=== PATIENT | female | born 1980 | race Caucasian/White ===

== ENCOUNTER 2017-02-09 20:46 | Outpatient (CLI) | payer MEDICAID ==
[~2017-02-09] VITALS: Ht 154.9 cm; Wt 68.3 kg
[~2017-02-09 20:46] MED LIST: OMEPRAZOLE PO
[2017-02-09 21:57] VITALS: Ht 154.9 cm; Wt 68.3 kg
[2017-02-09 22:00] VITALS: BP 105/63
[2017-02-09] MEDS ORDERED: TERBUTALINE 1 MG/ML INJ SC ONE (22:00)
[2017-02-09] MEDS ORDERED: LACTATED RINGER'S 1,000 ML IV ONE (22:00)
[2017-02-09 23:04] LABS: BASOPHILS % 0.1 % (0.0-2.0); EOSINOPHILS # 0.1 10^3/ul (0.0-0.5); EOSINOPHILS % 1.4 % (0.0-7.0); HEMATOCRIT 35.9 % (37.0-47.0); HEMOGLOBIN 12.5 g/dl (12.0-16.0); MEAN CORPUSCULAR HEMOGLOBIN 32.1 pg (29.0-33.0); MEAN CORPUSCULAR HGB CONC 34.8 g/dl (32.0-37.0); MEAN CORPUSCULAR VOLUME 92.3 fl (82.0-101.0); MEAN PLATELET VOLUME 11.8 fl (7.4-10.4); MONOCYTE # 0.5 10^3/ul (0.3-0.9); MONOCYTES % 6.2 % (0.0-11.0); NEUTROPHIL # 5.9 10^3/ul (1.6-7.5); NEUTROPHILS % 68.4 % (39.0-77.0); PLATELET COUNT 190 10^3/UL (140-415); RED BLOOD COUNT 3.89 10^6/ul (4.20-5.40); RED CELL DISTRIBUTION WIDTH 12.8 % (11.5-14.5); WHITE BLOOD COUNT 8.6 10^3/ul (4.8-10.8)
[2017-02-09 23:22] LABS: ALBUMIN 3.3 g/dl (3.3-4.9); ALBUMIN/GLOBULIN RATIO 1.1; BILIRUBIN,INDIRECT 0.5 mg/dl (0-1.1); BILIRUBIN,TOTAL 0.5 mg/dl (0.2-1.3); CALCIUM 8.9 mg/dl (8.4-10.2); CREATININE 0.43 mg/dl (0.44-1.00); POTASSIUM 3.5 mmol/L (3.5-5.1); TOTAL PROTEIN 6.3 g/dl (6.1-8.1)
[2017-02-09] MEDS: LACTATED RINGER'S 1,000 ML IV SCH (23:27)
[2017-02-10] MEDS ORDERED: TERBUTALINE 1 MG/ML INJ SC ONE (01:30)
[2017-02-10] MEDS ORDERED: NIFEdipine 10 MG CAP PO ONE (02:30)
[2017-02-10] MEDS: LACTATED RINGER'S 1,000 ML IV SCH (03:56)
--- NOTE | 2017-02-10 06:50 | PN ---
Triage Information Date/Time February 10, 2017 Weeks of Gestation 31w 2d : 4 Para: 2 Diabetes management: diet controlled (Newly diagnosed.) Hypertention: none Additional information Pt came in c/o contractions. PMHx: newly dx'ed with GDM. PSHx: Cholecystectomy. NKDA. Objective Vital Signs Date Time Temp Pulse Resp B/P Pulse Ox O2 Delivery O2 Flow Rate FiO2 02/09/17 22:00 98.0 105/63 Room Air Intake and Output 02/09/17 02/09/17 02/10/17 15:00 23:00 07:00 Intake Total 1850 ml Output Total 1100 ml Balance 750 ml Heart Rate: 140's Heart Rate Comments Accels to 160 bpm Contractions: 6-10 Minutes Apart Exam Cervix: 30% effaced/closed/-4 Results/Medications Result Diagram: 02/09/17224902/09/172249 Results 24 hrs Laboratory Tests Test 02/09/17 22:33 02/09/17 22:50 Bedside Glucose 87 White Blood Count 8.6 Red Blood Count 3.89 L Hemoglobin 12.5 Hematocrit 35.9 L Mean Corpuscular Volume 92.3 Mean Corpuscular Hemoglobin 32.1 Mean Corpuscular Hemoglobin Concent 34.8 Red Cell Distribution Width 12.8 Platelet Count 190 Mean Platelet Volume 11.8 H Neutrophils % 68.4 Lymphocytes % 23.0 Monocytes % 6.2 Eosinophils % 1.4 Basophils % 0.1 Nucleated Red Blood Cells % 0.0 Neutrophils # 5.9 Lymphocytes # 2.0 Monocytes # 0.5 Eosinophils # 0.1 Basophils # 0.0 Nucleated Red Blood Cells # 0.0 Sodium Level 141 Potassium Level 3.5 Chloride Level 105 Carbon Dioxide Level 21 Anion Gap 19 H Blood Urea Nitrogen 6 L Creatinine 0.43 L Glucose Level 90 Calcium Level 8.9 Total Bilirubin 0.5 Direct Bilirubin 0.00 Indirect Bilirubin 0.5 Aspartate Amino Transf (AST/SGOT) 26 Alanine Aminotransferase (ALT/SGPT) 37 Alkaline Phosphatase 114 Total Protein 6.3 Albumin 3.3 Globulin 3.00 Albumin/Globulin Ratio 1.10 Medications Current Medications Lactated Ringer's (Lr) 1,000 ml @ 150 mls/hr Q6H40M IV Last administered on t 03:56; Admin Dose 150 MLS/HR; Start 02/09/17 at 23:15 Assessment/Plan A: IUP at 31w 2d. False labor. Gestational DM. P: Pt was given IV hydration and 2 doses of terbutaline and one dose of Procardia 20mg before the UC's stopped. She was then observed for a few hours and her uterus stayed calm so she was then able to be d/c'ed home. Total bile acids were drawn as the pt c/o some body itching. That level will not be available for a week, approximately. Pt is scheduled to attend the diabetes clinic for teaching on Monday 02/12. ULZMARIA WADSWORTH MD Feb 10, 2017 06:50
--- NOTE | 2017-02-10 07:23 | TRIAGE ---
OB Triage Datetime Report Generated by CPN: 02/10/2017 07:22 Datetime: 02/10/2017 06:46 Assessment Type: Ongoing Assessment Datetime: 02/10/2017 05:24 Stage of : OB Triage Temperature Route: Oral Pain Assessment Pain Scale: 0 Datetime: 02/10/2017 05:00 Labor Evaluation Frequency: X4+irritabilities Monitor Mode: External Duration (sec)2399: 50-70 Quality: Mild Pattern: Normal: <= 5 Contractions in 10 Minutes Resting Tone [place]: Relaxed Heart Rate FHR Baseline Rate: 145 Monitor Mode: External US Variability: Moderate 6-25 bpm Accelerations: 15X15 Decelerations: None Category: Category I Datetime: 02/10/2017 04:10 Stage of : OB Triage Pain Assessment Pain Scale: 0 Datetime: 02/10/2017 04:00 Labor Evaluation Frequency: X1+IRRIT Monitor Mode: External Duration (sec)2399: 60 Quality: Mild Pattern: Normal: <= 5 Contractions in 10 Minutes Resting Tone [place]: Relaxed Heart Rate FHR Baseline Rate: 145 Monitor Mode: External US Variability: Moderate 6-25 bpm Accelerations: 15X15 Decelerations: None Category: Category I Datetime: 02/10/2017 03:00 Labor Evaluation Frequency: IRREGULAR Monitor Mode: External Duration (sec)2399: 40-70 Quality: Mild Pattern: Normal: <= 5 Contractions in 10 Minutes Resting Tone [place]: Relaxed Heart Rate FHR Baseline Rate: 145 Monitor Mode: External US Variability: Moderate 6-25 bpm Accelerations: 15X15 Decelerations: None Category: Category I Datetime: 02/10/2017 02:45 Stage of : OB Triage Pain Assessment Pain Scale: 8 Datetime: 02/10/2017 02:00 Labor Evaluation Frequency: X2 Monitor Mode: External Duration (sec)2399: 40-70 Quality: Mild Pattern: Normal: <= 5 Contractions in 10 Minutes Resting Tone [place]: Relaxed Heart Rate FHR Baseline Rate: 145 Monitor Mode: External US Variability: Moderate 6-25 bpm Accelerations: 15X15 Decelerations: None Category: Category I Datetime: 02/10/2017 01:14 Stage of : OB Triage Labor Evaluation Frequency: 4-10 Monitor Mode: External Duration (sec)2399: 60-90 Quality: Mild Pattern: Normal: <= 5 Contractions in 10 Minutes Resting Tone [place]: Relaxed Heart Rate FHR Baseline Rate: 145 Monitor Mode: External US Variability: Moderate 6-25 bpm Accelerations: 15X15 Decelerations: None Category: Category I Datetime: 02/10/2017 00:00 Labor Evaluation Frequency: 8-10 Monitor Mode: External Duration (sec)2399: 50-70 Quality: Mild Pattern: Normal: <= 5 Contractions in 10 Minutes Resting Tone [place]: Relaxed Heart Rate FHR Baseline Rate: 140 Monitor Mode: External US FHR Baseline Changes: No Baseline Change Variability: Moderate 6-25 bpm Accelerations: 15X15 Decelerations: None Category: Category I Datetime: 02/09/2017 23:00 Stage of : OB Triage Labor Evaluation Frequency: 5-6 Monitor Mode: External Duration (sec)2399: 50-70 Quality: Mild Pattern: Normal: <= 5 Contractions in 10 Minutes Resting Tone [place]: Relaxed Heart Rate FHR Baseline Rate: 140 Monitor Mode: External US FHR Baseline Changes: No Baseline Change Variability: Moderate 6-25 bpm Accelerations: 15X15 Decelerations: None Category: Category I Datetime: 02/09/2017 22:00 Labor Evaluation Frequency: 4-6 Monitor Mode: External Duration (sec)2399: 50-70 Quality: Mild Pattern: Normal: <= 5 Contractions in 10 Minutes Resting Tone [place]: Relaxed Heart Rate FHR Baseline Rate: 140 Monitor Mode: External US FHR Baseline Changes: No Baseline Change Variability: Moderate 6-25 bpm Accelerations: 15X15 Decelerations: None Category: Category I Datetime: 02/09/2017 21:52 Vaginal Exam Dilatation (cms): 0.0 Effacement (%): 30 Station: -4 Exam By: vb Vaginal Bleeding: None Cervix, Consistency: Soft Cervix, Position: Posterior Presentation 'A': Unable to Assess Datetime: 02/09/2017 21:11 Stage of : OB Triage Assessment Type: Triage Maternal Assessment Level of Consciousness: Fully Conscious DTR's/Clonus: DTRs 2+ Headache: Denies Blurred Vision: No Respiratory Effort: Unlabored Breath Sounds, Left: Clear and Equal Breath Sounds, Right: Clear and Equal Nausea/Vomiting: Denies RUQ Epigastric Pain: Denies Lower Extremities Edema: None Degree: None Upper Extremities Edema: None Degree: None Temperature Route: Oral Fall Risk Assessment History of Falling: (0) No Secondary Diagnosis: (0) No Ambulatory Aid: (0) Bedrest/Nurse Assist IV Therapy: (0) No Gait: (0) Normal/Bedrest/Immobile Mental Status: (0) Oriented to Own Ability Fall Score: 0 Fall Risk Score Definition: No Risk: No action required Labor Evaluation Frequency: 4-6 Monitor Mode: External Duration (sec)2399: 50-70 Quality: Mild Pattern: Normal: <= 5 Contractions in 10 Minutes Resting Tone [place]: Relaxed Heart Rate FHR Baseline Rate: 140 Monitor Mode: External US FHR Baseline Changes: No Baseline Change Variability: Moderate 6-25 bpm Accelerations: 15X15 Decelerations: None Category: Category I Pain Assessment Pain Scale: 6 Pain Presence: Intermittent Pain Type: Cramping Pain Location: Abdomen; Back Pain Relief Measures: Comfort Measures Datetime: 02/09/2017 21:09 EGA: 31.1 Datetime: 02/09/2017 21:07 Time of Arrival: 02/09/2017 21:00 Arrived By: Ambulatory Arrived From: Home Chief Complaint: uterine contraction Movement: Present Time Contractions Began: 02/09/2017 13:00 Rupture of Membranes: Denies Vaginal Bleeding: None Vaginal Discharge: Denies Recent Sexual Intercouse: Denies Patient Complaints: Contractions
== END 2017-02-10 06:59 | disposition home or self-care (01) ==
LOC: L-D 20:46 → OBT 20:46 → OBG 20:46 → OBT 02-10 06:59
PROVIDERS: ATTEND Obstetrics & Gynecology
DX: O24.410 Gestational diabetes mellitus in pregnancy, diet controlled (principal); O62.9 Abnormality of forces of labor, unspecified; O09.523 Supervision of elderly multigravida, third trimester; Z3A.31 31 weeks gestation of pregnancy; O26.893 Other specified pregnancy related conditions, third trimester; L29.9 Pruritus, unspecified
CPT/HCPCS: 36415; 80053; 82962; 83789; 85025; 96360; 96361; 96372; G0463; J3105; J7120